=== PATIENT | female | born 1990 | race Caucasian/White ===

== ENCOUNTER 2025-10-18 09:08 | Outpatient (CLI) | payer OTHER, SELFPAY ==
--- NOTE | ~2025-10-18 | US_ITS ---
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 Findings: Uterus: Uterus anteverted 10.1 x 6.3 x 3.8 cm, IUD in appropriate location in the uterine cavity. . Endometrium 4 mm. Right Ovary:Right ovary 2.7 x 2.3 x 2.2 cm, no adnexal mass, normal flow. Left Ovary: Left ovary 2.5 x 2.4 x 1.9 cm, no adnexal mass, normal flow. Free Fluid: None Impression: IUD in appropriate location. Reviewed, dictated and finalized at location P. F PRIVACY OFFICER Impression: IUD in appropriate location.
== END 2025-10-18 09:09 | disposition home or self-care (01) ==
DX: R10.20 Pelvic and perineal pain unspecified side (principal); N93.9 Abnormal uterine and vaginal bleeding, unspecified; Z97.5 Presence of (intrauterine) contraceptive device
CPT/HCPCS: 76830; 76856